=== PATIENT | male | born 1995 | race Caucasian/White ===

== ENCOUNTER 2020-02-16 06:45 | Emergency (ER) | payer BC ==
[2020-02-16] MEDS ORDERED: HYDROMORPHONE HCL INJ/PF 2 MG/ML AMPULE IV ONE (07:34)
[2020-02-16] MEDS ORDERED: KETOROLAC TROMETHAMINE INJ/PF 30 MG/1 ML SDV IV ONE (07:35)
[2020-02-16] MEDS ORDERED: PROMETHAZINE HCL INJ 25 MG/1 ML VIAL IV ONE (07:35)
--- NOTE | 2020-02-16 07:36 | ER Document Report ---
ED General - General Chief Complaint: Possible Kidney Stone Stated Complaint: ABDOMINAL AND BACK PAIN Time Seen by Provider: 02/16/20 07:27 Primary Care Provider: JAYLA MAZARIEGOS JR, MD [NO LOCAL MD] - Follow up in 1 week Notes: 24-year-old male with a history of for kidney stones no intervention presents with left leg pain for 2 days severe with nausea vomiting despite hydrocodone. Diagnosed with stone on x-ray last night in urgent care given Flomax hydrocodone. Has been taking it but has not taken it since 4 AM and the pain is severe. Has had less urination than usual but no hematuria. No fever. - Related Data Allergies/Adverse Reactions: No Known Allergies Allergy (Verified 02/16/20 07:05) Home Medications: hydrocodone. flomax Past Medical History - Social History Smoking Status: Current Every Day Smoker Smoking Education Provided: Yes - The patient ED visit today was directly related to their abuse of tobacco. Family History: None Patient has homicidal ideation: No Review of Systems - Review of Systems Notes: REVIEW OF SYSTEMS GEN: Denies fever, chills, weight loss ENT: Denies sore throat, nasal discharge, ear pain EYES: Denies blurry vision, eye pain, discharge CV: Denies chest pain, palpitations, edema RESP: Denies cough, shortness of breath, wheezing GI: And flank pain MSK: Flank pain SKIN: Denies rash, skin lesions LYMPH: Denies swollen glands/lymph nodes NEURO: Denies headache, focal weakness or numbness, dizziness PSYCH: Denies depression, suicidal or homicidal ideation PHYSICAL EXAMINATION General: Pain Head: Atraumatic, normocephalic ENT: Mouth normal, oropharynx moist, no exudates or tonsillar enlargement Eyes: Conjunctiva normal, pupils equal, lids normal Neck: No JVD, supple, no guarding CVS: Normal rate, regular rhythm, no murmurs Resp: No resp distress, equal and normal breath sounds bilaterally GI: Nondistended, soft, no tenderness to palpation, no rebound or guarding Ext: No deformities, no edema, normal range of motion in upper and lower ext Back: No CVA or midline TTP Skin: No rash, warm Lymphatic: No lymphadeopathy noted Neuro: Awake, alert. Face symmetric. GCS 15. Physical Exam - Vital signs Vitals: Temp Pulse Resp BP Pulse Ox 97.4 F 60 22 H 138/87 H 100 06/11/20 06:59 02/16/20 06:59 02/16/20 06:59 02/16/20 06:59 02/16/20 06:59 Course - Re-evaluation Re-evalutation: 02/16/20 15:24 Renal colic ultrasound confirmed CT confirms. Distal stone. No infection. Feeling much better after Dilaudid. Discussed adding an NSAID and nausea medicine to his regimen follow-up with urology. - Vital Signs Vital signs: Temp Pulse Resp BP Pulse Ox 97.4 F 60 22 H 114/68 100 02/16/20 07:01 02/16/20 06:59 02/16/20 06:59 02/16/20 08:59 02/16/20 06:59 - Laboratory Laboratory results interpreted by me: 02/16/20 07:47 Urine Protein 30 H Urine Ketones TRACE H Urine Blood LARGE H Urine Ascorbic Acid 20 H - Diagnostic Test Radiology reviewed: Image reviewed, Reports reviewed Procedures - Ultrasound/Bedside Ultrasound/Bedside Ultrasound: Other - Kidney limited: Right side: Normal no hydronephrosis. Left side: Moderate hydronephrosis. No perirenal fluid collections. Discharge - Discharge Clinical Impression: Renal colic on left side Condition: Good Disposition: HOME, SELF-CARE Instructions: Kidney Stone ([facility]), Pain Medication Injection ([facility]), Toradol Injection ([facility]) Prescriptions: Ibuprofen 400 mg PO Q6 #30 capsule Promethazine HCl [Phenergan 25 mg Supp.rect] 1 supp ME Q6H #12 supp.rect Referrals: JAYLA MAZARIEGOS JR, MD [NO LOCAL MD] - Follow up in 1 week
[2020-02-16 08:27] LABS: APPEARANCE,URINE SLIGHTLY-CLOUDY; BILIRUBIN,URINE NEGATIVE (NEGATIVE); COLOR,URINE YELLOW; GLUCOSE, URINE NEGATIVE (NEGATIVE); KETONES,URINE TRACE mg/dL (NEGATIVE); LEUKOCYTE ESTERASE,URINE NEGATIVE (NEGATIVE); NITRITE,URINE NEGATIVE (NEGATIVE); PROTEIN,URINE 30 mg/dL (NEGATIVE); URINE SPECIFIC GRAVITY 1.024; UROBILINOGEN,URINE NEGATIVE mg/dL (<2.0)
--- NOTE | 2020-02-16 08:47 | RADIOLOGY REPORT (SQ) ---
EXAM DESCRIPTION: CT ABD/PELVIS NO ORAL OR IV IMAGES COMPLETED DATE/TIME: 02/16/2020 8:24 am REASON FOR STUDY: L stone COMPARISON: None. TECHNIQUE: CT scan of the abdomen and pelvis performed without intravenous or oral contrast. Images reviewed with lung, soft tissue, and bone windows. Reconstructed coronal and sagittal MPR images revi ewed. All images stored on PACS. All CT scanners at this facility use dose modulation, iterative reconstruction, and/or weight based d osing when appropriate to reduce radiation dose to as low as reasonably achievable (ALARA). [facility]: Dose Right [facility]: CareDose [facility]: Dose Right [facility]: Teradose 4D [facility]: Smart [employer] RADIATION DOSE: CT Rad equipment meets quality standard of care and radiation dose reduction techniq ues were employed. CTDIvol: 4.0 mGy. DLP: 218 mGy-cm.mGy. LIMITATIONS: None. FINDINGS: LOWER CHEST: No significant findings. No nodules or infiltrates. NON-CONTRASTED LIVER, SPLEEN, ADRENALS: Evaluation limited by lack of IV contrast. No identified sign ificant masses. PANCREAS: No masses. No peripancreatic inflammatory changes. GALLBLADDER: No identified stones by CT criteria. No inflammatory changes to suggest cholecystitis. RIGHT KIDNEY AND URETER: No suspicious masses. Assessment limited by lack of IV contrast. Several s mall calculi measuring up to 2 mm. No hydronephrosis or hydroureter. LEFT KIDNEY AND URETER: No suspicious masses. Assessment limited by lack of IV contrast. Several re nal calculi measuring up to 4 mm. 3 mm calcification to left of midline in the pelvis on image 73. Uncertain if phlebolith or stone in the distal ureter. Moderate hydronephrosis and hydroureter. AORTA AND RETROPERITONEUM: No aneurysm. No retroperitoneal masses or adenopathy. BOWEL AND PERITONEAL CAVITY: No obvious masses or inflammatory changes. No free fluid. APPENDIX: Normal. PELVIS, BLADDER, AND ABDOMINAL WALL:No abnormal masses. No free fluid. Bladder normal. BONES: No significant findings. OTHER: No other significant finding. IMPRESSION: Bilateral renal calculi. 3 mm calcification in the pelvis could be in the distal ureter . Moderate left hydronephrosis. COMMENT: Quality ID # [id number]: Final reports with documentation of one or more dose reduction techniques (e.g., Automated exposure control, adjustment of the mA and/or kV according to patient size, use of iterative reconstruction technique) TECHNICAL DOCUMENTATION: JOB ID: [id number] 2010 [facility] [employer], [place]- All Rights Reserved Reading location - IP/workstation name: [email or web address]
[2020-02-16 09:00] VITALS: BP 114/68
== END 2020-02-16 08:59 | disposition home or self-care (01) ==
LOC: ER 06:45
DX: N20.0 Calculus of kidney (principal); N13.30 Unspecified hydronephrosis; R10.9 Unspecified abdominal pain; R11.2 Nausea with vomiting, unspecified; M79.605 Pain in left leg; F17.200 Nicotine dependence, unspecified, uncomplicated
CPT/HCPCS: 99284; 96374; 96375; 81001; 74176; J1885; J1170; J2550